=== PATIENT | male | born 1995 | race Caucasian/White ===

== ENCOUNTER 2019-11-06 22:49 | Emergency (ER) | payer OTHER ==
[~2019-11-06] VITALS: Ht 175.3 cm; Wt 77.1 kg
[2019-11-06 23:29] LABS: INFLUENZA A ANTIGEN Negative (Negative)
[2019-11-07] MEDS ORDERED: TAMIFLU75 MG PO (00:58)
[2019-11-07 01:52] VITALS: BP 127/71
== END 2019-11-07 01:54 | disposition home or self-care (01) ==
LOC: M.ERS 22:49
PROVIDERS: Emergency Medicine
DX: J10.1 Influenza due to other identified influenza virus with other respiratory manifestations (principal)